=== PATIENT | male | born 1960 | race Caucasian/White ===

== ENCOUNTER → 2017-08-15 | Outpatient (CLI) | payer OTHER ==
[~2017-08-15] MED LIST: FEXO1TAB46 PO; FLUT0.0529 NAE; FLUT50SP45 NAE; KETO10TA PO; LEVO88TA PO; MULT-506 PO; OXYC-57 PO
--- NOTE | 2017-08-15 19:24 | DIAGNOSTIC IMAGING REPORT ---
MRI OF THE RIGHT SHOULDER WITHOUT CONTRAST CLINICAL HISTORY: Right shoulder pain. Recent injury. Evaluate for rotator cuff tear. COMPARISON STUDY: No previous studies for comparison. TECHNIQUE: Utilizing a 1.5 Karla magnet and dedicated coil, multiplanar, multi echo imaging of the right shoulder performed without intravenous or intra-articular contrast. FINDINGS: Alignment of the right shoulder is anatomic. There is moderate osteoarthritis of the right acromioclavicular joint and mild osteoarthritis of the right glenohumeral joint. The glenoid labrum is suboptimally assessed on this nonarthrogram exam but there is a suspected posterior labral tear. There is a small right shoulder joint effusion which contains small loose bodies. There is partial medial subluxation of the proximal long head of biceps tendon with partial-thickness tear of the tendon. There is a full-thickness tear of the anterior fibers of supraspinatus with retraction of 2.8 cm. There is high-grade partial-thickness tear of the remaining portions of distal supraspinatus. Interstitial tear within distal infraspinatus is noted without full-thickness tear of infraspinatus. Teres minor is intact. There is full-thickness tear of distal subscapularis. A small amount of fluid within the subacromial/subdeltoid bursa is noted. There is no fracture or marrow replacement. There is mild muscular atrophy of subscapularis and supraspinatus. IMPRESSION: 1. Extensive full-thickness tear of the distal anterior fibers of supraspinatus with tendon retraction and mild muscular atrophy. 2. Full-thickness tear of distal subscapularis with muscular atrophy. 3. Suspected posterior labral tear. 4. Partial medial subluxation of the proximal long head of the biceps tendon with associated partial thickness tear of the tendon. 5. Small right shoulder joint effusion which contains numerous small joint bodies. Electronically signed by: Sang Hernandez M.D. 08/15/2017 7:22 PM Dictated Date/Time: 08/15/2017 4:47 PM
== END | disposition home or self-care (01) ==
LOC: C.MRIBC 14:34
PROVIDERS: ATTEND Orthopaedic Surgery
DX: M75.101 Unspecified rotator cuff tear or rupture of right shoulder, not specified as traumatic (principal); M25.411 Effusion, right shoulder

== ENCOUNTER → 2017-08-16 | Outpatient (CLI) | payer OTHER ==
[2017-08-16 10:01] LABS: BASO % 0.1 %; BASO ABS # 0.01 K/uL (0-0.2); COMPLETE YES; IG% 0.1 %; LYMPH % 10.4 %; LYMPH ABS # 1.39 K/uL (1.2-3.4); MEAN CELL VOLUME 90.5 fL (80-100); MEAN CORPUSCULAR HGB CONC 35.3 g/dl (32-36); MEAN PLATELET VOLUME 11.5 fL (7.4-10.4); MONO % 3.2 %; NEUT % 86.2 %; PLATELET COUNT 327 K/uL (130-400); RED BLOOD COUNT 4.75 M/uL (4.7-6.1); WHITE BLOOD COUNT 13.37 K/uL (4.8-10.8)
[2017-08-16 10:21] LABS: BLOOD UREA NITROGEN 23 mg/dl (7-18); BUN/CREATININE RATIO 20.5 (10-20); CALCIUM 9.8 mg/dl (8.5-10.1); CARBON DIOXIDE 26 mmol/L (21-32); CHLORIDE 105 mmol/L (98-107); CREATININE 1.11 mg/dl (0.60-1.40); GLUCOSE 144 mg/dl (70-99); POTASSIUM 4.5 mmol/L (3.5-5.1); SODIUM 138 mmol/L (136-145)
== END | disposition home or self-care (01) ==
LOC: C.LAB 09:24
PROVIDERS: ATTEND Orthopaedic Surgery
DX: Z01.810 Encounter for preprocedural cardiovascular examination (principal); Z01.812 Encounter for preprocedural laboratory examination; S43.81XA Sprain of other specified parts of right shoulder girdle, initial encounter; X58.XXXA Exposure to other specified factors, initial encounter

== ENCOUNTER → 2017-08-31 | Day surgery (SDC) | payer OTHER ==
[2017-08-30 09:58] VITALS: Ht 182.9 cm; Wt 97.7 kg
[~2017-08-31] VITALS: Ht 182.9 cm; Wt 97.7 kg
[~2017-08-31] MED LIST changes: +ATROPINE SULFATE 0.1 MG/ML 5ML SYR IV PRN; +BUPIVACAINE/EPINEPHRINE 0.25% 1:200,000 30 ML VIAL ONE; +CEFAZOLIN 2000MG IV PUSH 10 ML IV SCH; +DEXAMETHASONE SOD INJ 4 MG/ML VIAL ONE; +EpHEDrine SULFATE INJ 50 MG/ML AMP IV PRN; +EpHEDrine SULFATE INJ 50 MG/ML AMP ONE; +EpINEphrine INJ 1MG/ML AMP 1 MG/ML AMP ONE; +FENTANYL CITRATE INJ 50 MCG/1 ML 2 ML VIAL ONE; -FLUT0.0529 NAE; +GLYCOPYRROLATE INJ 0.2 MG/ML VIAL ONE; +HYDROmorphone INJ 1 MG/ML SYR IV PRN; +KETOROLAC TROMETHAMINE 30 MG/ML VIAL IV. PRN; +LACTATED RINGER'S 1000ML 1,000 ML IV SCH; +LIDOCAINE HCL 2% 2 ML VIAL (20MG/ML) ONE; +MIDAZOLAM HCL 1 MG/ML 2ML VIAL ONE; -MULT-506 PO; +NEOSTIGMINE METHYLSULFATE 5 MG/5 ML SYR ONE; +ONDANSETRON INJ 2 MG/ML 2 ML VIAL IV PRN; +ONDANSETRON INJ 2 MG/ML 2 ML VIAL ONE; +OXYCODONE/ACETAMINOPHEN 5-325 TAB ONE; +OXYCODONE/ACETAMINOPHEN 5-325 TAB PO PRN; +PATIENT'S HEIGHT AND/OR WEIGHT NEEDED SCH; +PROPOFOL IV EMULSION 10 MG/ML 20 ML VIAL IV ONE; +ROPIVACAINE 0.5% 5 MG/ML 30 ML VIAL ONE; +SODIUM CHLORIDE 0.9% 1000ML 1,000 ML IV SCH; +SODIUM CHLORIDE 0.9% INJ 10 ML VIAL ONE
--- NOTE | 2017-08-31 08:12 | History & Physical Bridge Note ---
H&P Re-Evaluation Bridge Note: I have examined the patient, reviewed the History & Physical and in the interval since the performance of the History & Physical I have noted the following changes of clinical significance: No changes noted
--- NOTE | 2017-08-31 10:44 | [facility] Post Operative Brief Note ---
Immediate Operative Summary Operative Date Aug 31, 2017. Pre-Operative Diagnosis Large rotator cuff tear right shoulder Post-Operative Diagnosis Same as preop Procedure(s) Performed Right Shoulder Arthroscopic Acromioplasty, Open Large Rotator Cuff Repair With Biceps Tenotomy, Biceps Tenodesis Surgeon Dr. Chairez Stitch Burnisher Surgeon(s) Nino Jarvis PA-C Estimated Blood Loss 20 mL Findings as above Specimens None Complication(s) None Disposition Recovery Room / PACU
--- NOTE | 2017-08-31 11:03 | Discharge Instructions-SurgCtr ---
Discharge Instructions Date of Service Aug 31, 2017. Visit Reason for Visit: Right Shoulder Rotator Cuff & Supraspinatus Tears Discharge Discharge Diagnosis / Problem: SAME ABOVE Discharge Goals Goal(s): Decrease discomfort, Improve function Activity Recommendations Activity Limitations: as noted below Lifting Limitations: until after follow-up appointment Exercise/Sports Limitations: until after follow-up appointment Shower/Bathe: tomorrow Anesthesia . Post Anesthesia Instructions: If you have had General Anesthesia or IV Sedation: * Do not drive today. * Resume driving when surgeon permits. * Do not make important decisions or sign legal documents today. * Call surgeon for: 1. Temperature elevations greater than 101 degrees F. 2. Uncontrollable pain. 3. Excessive bleeding. 4. Persistent nausea and vomiting. 5. Medication intolerance (nausea, vomiting or rash). * For nausea and vomiting use only clear liquids such as: tea, soda, bouillon until nausea subsides, then gradually increase diet as tolerated. * If you have any concerns or questions, call your surgeon's office. If physician is unavailable and it is an emergency, call 911 or go to the nearest emergency room. . Instructions / Follow-Up Instructions / Follow-Up MEDICATIONS: * Resume previous medications unless instructed otherwise by your surgeon. * Always take pain medication on a full stomach or with food to avoid upset stomach. * Do not drink alcohol or drive while taking narcotics. * Ibuprofen or Tylenol may be taken if narcotic not needed. SPECIAL CARE INSTRUCTIONS: __ None _X_ Keep extremity elevated and iced x 48 hours; apply ice 20-30 minutes 8-10 times/day. May remove at night. __ Sling __24 hrs/day __ Remove at night _X_ Shoulder Immobilizer (MAY REMOVE AFTER 48 HOURS ONLY TO SHOWER) _X_ 24 hrs/day __ Remove at night _X_ Dressing __ Maintain until seen in office, may shower with plastic over site _X_ Remove dressings in 24-48 hours and then may shower _X_ Cover incisions with band-aids after showering __ Do not remove steri-strips Call physician if chills or temperature rises above 102 degrees or pain unrelieved by prescribed pain medications at . . Diet Recommendations Home Diet: no limitations Fluid Restriction: None Procedures Procedures Performed: Right Shoulder Arthroscopic Acromioplasty, Open Large Rotator Cuff Repair With Biceps Tenotomy, Biceps Tenodesis Pending Studies Studies pending at discharge: no Work Instructions Return To Work: after follow-up Lifting Limitations: NO LIFTING WITH RIGHT ARM Medical Emergencies . Who to Call and When: Medical Emergencies: If at any time you feel your situation is an emergency, please call 911 immediately. . Non-Emergent Contact Non-Emergency issues call your: Primary Care Provider Call Non-Emergent contact if: you have a fever, temperature is above 101.5 . . "Provider Documentation" section prepared by Nino Jarvis. .
[2017-08-31 12:56] VITALS: BP 132/85; PULSE 92; O2SAT 98
--- NOTE | 2017-08-31 12:56 | Anesthesia Progress Nt - [facility] ---
Anesthesia Post Op Note Date & Time Aug 31, 2017 at 12:56 Vital Signs Pain Intensity: 2 Vital Signs Past 12 Hours Date Time Temp Pulse Resp B/P (MAP) Pulse Ox O2 Delivery O2 Flow Rate FiO2 08/31/17 12:24 36.5 89 16 135/81 (99) 97 Room Air 08/31/17 12:06 152/80 08/31/17 12:03 86 16 97 08/31/17 12:03 87 16 08/31/17 12:01 144/83 08/31/17 11:59 36.5 84 16 144/83 98 Room Air 08/31/17 11:58 93 8 97 08/31/17 11:58 92 8 08/31/17 11:56 147/102 08/31/17 11:51 153/98 08/31/17 11:48 88 15 96 08/31/17 11:48 91 15 08/31/17 11:46 138/89 08/31/17 11:43 91 6 96 08/31/17 11:43 90 6 08/31/17 11:41 148/87 08/31/17 11:38 85 10 97 08/31/17 11:38 87 10 08/31/17 11:36 141/90 08/31/17 11:33 86 12 08/31/17 11:33 86 12 100 08/31/17 11:31 146/90 08/31/17 11:28 81 8 08/31/17 11:28 83 8 100 08/31/17 11:26 142/88 08/31/17 11:23 85 13 08/31/17 11:23 83 13 100 08/31/17 11:21 140/96 08/31/17 11:18 83 9 08/31/17 11:18 81 9 100 08/31/17 11:16 126/90 08/31/17 11:13 90 18 100 08/31/17 11:13 89 18 08/31/17 11:11 145/88 08/31/17 11:08 86 14 08/31/17 11:08 85 14 98 08/31/17 11:06 142/93 08/31/17 11:03 85 13 08/31/17 11:03 90 13 97 08/31/17 11:02 152/93 08/31/17 11:01 36.5 86 16 152/93 100 Diffusion Mask 6 08/31/17 08:58 83 96 08/31/17 08:58 83 08/31/17 08:57 80 97 08/31/17 08:57 80 08/31/17 08:56 123/89 08/31/17 08:52 78 9 98 08/31/17 08:52 78 08/31/17 08:51 126/83 08/31/17 08:47 81 9 98 08/31/17 08:47 81 08/31/17 08:46 119/80 08/31/17 08:42 83 17 98 08/31/17 08:42 83 08/31/17 08:41 117/87 08/31/17 08:37 77 14 99 08/31/17 08:37 77 08/31/17 08:36 120/86 08/31/17 08:32 84 08/31/17 08:32 83 11 99 08/31/17 08:31 132/94 08/31/17 08:27 82 08/31/17 08:27 83 21 99 08/31/17 08:25 131/83 08/31/17 07:42 36.4 88 16 118/83 (95) 96 Room Air Notes Mental Status: alert / awake / arousable, participated in evaluation Pt Amnestic to Procedure: Yes Nausea / Vomiting: adequately controlled Pain: adequately controlled Airway Patency, RR, SpO2: stable & adequate BP & HR: stable & adequate Hydration State: stable & adequate Anesthetic Complications: no major complications apparent
--- NOTE | 2017-08-31 16:54 | OPERATIVE REPORT ---
DATE OF OPERATION: 08/31/2017 PREOPERATIVE DIAGNOSIS: Anterior superior rotator cuff tear of the right shoulder. POSTOPERATIVE DIAGNOSIS: Same. PROCEDURE: Right shoulder diagnostic arthroscopy with limited debridement, acromioplasty, biceps tenotomy and open anterior superior rotator cuff repair and open biceps tenodesis. SURGEON: Dr. Parker Chairez. STOCK ROOM MANAGER: Mio Jarvis PA-C, whose assistance was necessary for retraction and closure. ANESTHESIA: General with a right interscalene nerve block. COMPLICATIONS: None. CONDITION: Stable to PACU. INDICATIONS: Saravanan is a pleasant 57-year-old male who was pushing down a metal shell about 2 weeks ago when he felt a pop in his shoulder. MRI and clinical examination were diagnostic for anterior superior rotator cuff tear with medially subluxated biceps tendon. After failing conservative treatment, he elected to undergo arthroscopy. DESCRIPTION OF PROCEDURE: On 08/31/2017, he arrived at [facility] for the above procedure. He was seen in the preoperative holding area and the operative extremity was identified and signed. He was given a preoperative antibiotic and a right interscalene nerve block. He was taken back to the operating room, laid on the table in supine position and put under general anesthesia. He was then put into the beachchair position. The right shoulder was prepped and draped in sterile fashion. Time-out was done and the patient's operative extremity was properly identified. A scope was introduced into a posterior portal. Diagnostic arthroscopy showed no cartilage damage to the humeral head or the glenoid. There was a little fraying of the anterior labrum. The biceps tendon was subluxated medially and very frayed. There was a tear of the anterior two-thirds of the supraspinatus. The remainder of the supraspinatus, the infraspinatus and teres minor were intact. There was a tear of the entire subscapularis and it was retracted medially towards the glenoid. An anterior portal was made. A shaver was used to do a limited debridement of the intraarticular structures. The biceps tendon was arthroscopically tenotomized. The scope was then put into the subacromial space. A lateral portal was made. A shaver was used to do a complete subacromial and subdeltoid bursectomy. A 5-0 preeti was then used to complete an acromioplasty of a Bigliani type 3 acromion. A shaver was used to remove any excess debris and given the size of the subscapularis tear, I felt that this would be best treated through an open deltopectoral approach. Arthroscopic instruments were removed from the shoulder. A small incision was made a kind of chcf between the deltopectoral and axillary interval. Dissection was taken down through the deltopectoral interval and the anterior shoulder was easily exposed. The long head of the biceps tendon was pulled out of the wound. Attention was paid first to the supraspinatus. The greater tuberosity was prepared with a ring curette and a microfracture. The rotator cuff was then fixed with an Arthrex SpeedBridge configuration using BioComposite SwiveLock suture anchors and FiberTapes. This gave a nice repair of the supraspinatus. Attention was then turned to the subscapularis. The lesser tuberosity was prepared with a ring curette and a microfracture. The subscapularis was then fixed with an Arthrex SpeedBridge configuration using 4.75-mm BioComposite SwiveLock suture anchors and FiberTapes. The lateral SwiveLock suture anchors were in the bicipital groove and I used stay sutures from those anchors to tie down the biceps tendon to complete an open biceps tenodesis. The shoulder was brought through a full range of motion and I was very happy with the repair. The scope was placed back into the glenohumeral joint and I was happy with the repair from the articular side. Arthroscopic instruments were removed from the shoulder. Portal sites were closed with cassi. The wound was closed with 2-0 Vicryl and cassi. He was then placed in a soft dressing and an abduction arm sling. He was then extubated, transferred to a [facility] and taken to the postanesthesia care unit in stable condition. He tolerated the procedure well. I attest to the content of the Intraoperative Record and any orders documented therein. Any exception s are noted below.
== END | disposition home or self-care (01) ==
LOC: X.SURG 07:32
PROVIDERS: ATTEND Orthopaedic Surgery
DX: S46.011A Strain of muscle(s) and tendon(s) of the rotator cuff of right shoulder, initial encounter (principal); X50.0XXA Overexertion from strenuous movement or load, initial encounter; E03.9 Hypothyroidism, unspecified; Z83.3 Family history of diabetes mellitus; Z80.42 Family history of malignant neoplasm of prostate; Z80.2 Family history of malignant neoplasm of other respiratory and intrathoracic organs; Z80.52 Family history of malignant neoplasm of bladder

== ENCOUNTER → 2018-03-20 | Outpatient (CLI) | payer OTHER ==
[~2018-03-20] MED LIST changes: -ATROPINE SULFATE 0.1 MG/ML 5ML SYR IV PRN; -BUPIVACAINE/EPINEPHRINE 0.25% 1:200,000 30 ML VIAL ONE; -CEFAZOLIN 2000MG IV PUSH 10 ML IV SCH; -DEXAMETHASONE SOD INJ 4 MG/ML VIAL ONE; -EpHEDrine SULFATE INJ 50 MG/ML AMP IV PRN; -EpHEDrine SULFATE INJ 50 MG/ML AMP ONE; -EpINEphrine INJ 1MG/ML AMP 1 MG/ML AMP ONE; -FENTANYL CITRATE INJ 50 MCG/1 ML 2 ML VIAL ONE; -GLYCOPYRROLATE INJ 0.2 MG/ML VIAL ONE; -HYDROmorphone INJ 1 MG/ML SYR IV PRN; -KETO10TA PO; -KETOROLAC TROMETHAMINE 30 MG/ML VIAL IV. PRN; -LACTATED RINGER'S 1000ML 1,000 ML IV SCH; -LIDOCAINE HCL 2% 2 ML VIAL (20MG/ML) ONE; -MIDAZOLAM HCL 1 MG/ML 2ML VIAL ONE; -NEOSTIGMINE METHYLSULFATE 5 MG/5 ML SYR ONE; -ONDANSETRON INJ 2 MG/ML 2 ML VIAL IV PRN; -ONDANSETRON INJ 2 MG/ML 2 ML VIAL ONE; -OXYC-57 PO; -OXYCODONE/ACETAMINOPHEN 5-325 TAB ONE; -OXYCODONE/ACETAMINOPHEN 5-325 TAB PO PRN; -PATIENT'S HEIGHT AND/OR WEIGHT NEEDED SCH; -PROPOFOL IV EMULSION 10 MG/ML 20 ML VIAL IV ONE; -ROPIVACAINE 0.5% 5 MG/ML 30 ML VIAL ONE; -SODIUM CHLORIDE 0.9% 1000ML 1,000 ML IV SCH; -SODIUM CHLORIDE 0.9% INJ 10 ML VIAL ONE
--- NOTE | 2018-03-20 09:01 | DIAGNOSTIC IMAGING REPORT ---
ABDOMEN LIMITED (US) CLINICAL HISTORY: SKIN LESION INTERIOR ABDOMEN COMPARISON STUDY: Abdomen and pelvis CT 12/02/2015. FINDINGS: Real-time sonographic imaging of the abdominal wall was performed with herbicide service sales representative images submitted. There is a slightly hyperechoic subcutaneous oval-shaped lesion measuring 2.6 x 1.4 x 0.7 cm. This favors a lipoma. This is located just to the left of midline. Within the left lateral lower abdomen there is a slightly hypoechoic oval-shaped subcutaneous lesion measuring 3.8 x 4.7 x 1.2 cm. This also favors a lipoma. IMPRESSION: Subcutaneous lesions within the left abdominal wall as described above. These are technically indeterminate by ultrasound but favor lipomas. Electronically signed by: Daniel Mock M.D. 03/20/2018 8:59 AM Dictated Date/Time: 03/20/2018 8:53 AM
== END | disposition home or self-care (01) ==
LOC: C.ULTRBC 08:12
PROVIDERS: ATTEND Family Medicine
DX: L72.9 Follicular cyst of the skin and subcutaneous tissue, unspecified (principal)